=== PATIENT | male | born 1960 | race Caucasian/White ===

== ENCOUNTER 2022-04-19 09:45 | Outpatient (CLI) | payer OTHER, SELFPAY ==
--- NOTE | ~2022-04-19 | CT_ITS ---
EXAMINATION: CT diagnostic chest wo con DATE: 04/19/2022 12:16 INDICATION: COPD, shortness of breath TECHNIQUE: Computed tomography (CT) of the chest was performed without intravenous contrast. The dose -length product (DLP) was 762.17 mGy-cm. Automated exposure control and iterative reconstruction tech nique were employed. COMPARISON: None FINDINGS: There is mild emphysema. The heart size is normal. There are no pathologically enlarged tho racic lymph nodes. The lungs are free of acute opacities. No pleural effusion or pneumothorax. Bilate ral gynecomastia is noted. There are changes of coronary artery bypass grafting. Subendocardial fat d eposition in the interventricular septum and left ventricular apex of the heart is consistent with pr ior myocardial infarction. There is a moderate-sized sliding hiatal hernia. There is mild thoracic sp ondylosis. IMPRESSION: 1. Mild emphysema. Reviewed, dictated and finalized at location B. [facility] IMPRESSION: 1. Mild emphysema.
--- NOTE | 2022-04-19 10:06 | ECHO_ITS ---
Patient Info Name: Pablo Severino Age: 62 years : 1960 Gender: Male Ht: 70 in Wt: 253 lbs BSA: 2.42 m2 HR: 95 bpm BP: 159 / 97 mmHg Technical Quality: Good Exam Date: 04/19/2022 10:18 AM Exam Location: [facility] Patient Status: Outpatient Admit Date: 04/19/2022 Staff Ordering Physician: Ricardo Orellana DO [employer] Set Up Operator: Shanon Martinez RDCS Attending Provider: Ricardo Orellana DO Referring Physician: Esteban WATSON; Exam Type: CA echo doppler color flow Study Info Indications R06.09 - Other forms of dyspnea Complete two-dimensional, color flow and Doppler transthoracic echocardiogram is performed. Summary 1. Complete two-dimensional, color flow and Doppler transthoracic echocardiogram is performed. 2. Left ventricular chamber dimension is normal. 3. Left ventricular systolic function is normal, estimated at 65-70%. 4. The left ventricular diastolic function is grade I diastolic dysfunction. 5. E/e' 10 is mildly elevated. 6. There is mild aortic valve sclerosis. Left Ventricle E/e' 10 is mildly elevated. Left ventricular chamber dimension is normal. Left ventricular systolic function is normal, estimated at 65-70%. The left ventricular diastolic function is grade I diastolic dysfunction. Right Ventricle Right ventricular systolic function is normal and with normal TAPSE 2.1 cm. Right ventricular chamber dimension is normal. Left Atria Left atrial chamber dimension is normal. Right Atria Right atrial chamber dimension is normal. Aortic Valve The aortic valve is trileaflet. There is mild aortic valve sclerosis. There is no aortic valve stenosis. There is no aortic valve regurgitation. Pulmonic Valve There is no pulmonic regurgitation. Mitral Valve There is no mitral valve stenosis. There is no mitral valve regurgitation. Tricuspid Valve There is no tricuspid valve regurgitation. Pericardium/Pleural There is no pericardial effusion. Inferior Vena Cava Normal inferior vena cava with >50% collapse upon inspiration consistent with normal right atrial pressure, 5 mmHg. Aorta The aortic root size at the sinus of Valsalva is normal. Left Ventricular Outflow Tract Name Value Normal LVOT 2D LVOT Diameter 2.0 cm LVOT Doppler LVOT Peak Gradient 3 mmHg LVOT Mean Gradient 3 mmHg LVOT VTI 18 cm LVOT VTI/AV VTI Ratio 0.9 LVOT Stroke Volume 58 ml LVOT CO 5.1 l/min LVOT CI 2.1 l/min/m2 Mitral Valve Name Value Normal MV Doppler MV Peak Gradient 3 mmHg MV Mean Gradient 1 mmHg MV [place] 406 cm/s2 MV PHT
--- NOTE | 2022-04-21 08:39 | WPDPFTINT ---
PFT Procedure Performed PFT Procedure Performed Spirometry with Pre/Post Bronchodilator Plethysmography (Lung Vol) Diffusing Cap (DLCO) Flow Vol Loop PFT Interpretation Lung volumes were measured with the body plethysmography method. The elevated FRC and RV are indicative of air trapping. Spirometry showed diminished expiratory flow rates and diminished FEV1 to FVC ratio 53%, indicative of obstructive airway disease. Following administration of a bronchodilator there was no significant increase in expiratory flow rates. Lung diffusion capacity is within the normal range. The flow volume loop is consistent with obstructive airway disease. Impression: Moderate obstructive airway disease with evidence of lung hyperinflation and air trapping and no response to bronchodilators on this testing. Lung diffusion capacity within normal range.
--- NOTE | 2022-04-21 08:41 | WPDSIXMINUTE ---
Six Minute Walk Procedure Procedure Performed Pulmonary Stress Test (6 min walk) Six Minute Walk Six Minute Walk: This 6 minute walk test was carried out with the patient breathing ambient air. The pre walk oxyhemoglobin saturation was 92%. The patient walked over 365 m with no stops during testing. During the walk oxyhemoglobin saturation remained 94% or higher. Impression: No evidence of oxyhemoglobin desaturation on this testing.
== END 2022-04-19 09:46 | disposition home or self-care (01) ==
LOC: ANHPFT 09:46
PROVIDERS: PCP Family Medicine Adolescent Medicine; Visit Provider Internal Medicine Cardiovascular Disease
DX: J44.9 Chronic obstructive pulmonary disease, unspecified (principal); R06.09 Other forms of dyspnea; Z87.891 Personal history of nicotine dependence; R94.2 Abnormal results of pulmonary function studies; J43.9 Emphysema, unspecified
CPT/HCPCS: 71250; 93306; 94060; 94618; 94726; 94729

== ENCOUNTER 2022-06-12 17:43 | Outpatient (CLI) | payer OTHER, SELFPAY ==
[2022-06-12 18:12] LABS: Alanine Aminotransferase 21 U/L (6-50); Albumin Level 4.5 g/dL (3.5-5.1); Alkaline Phosphatase 88 U/L (38-126); Anion Gap 7 mmol/L (8-16); Aspartate Amino Transferase 23 U/L (17-59); Bilirubin,Total 0.5 mg/dL (0.2-1.3); Blood Urea Nitrogen 26 mg/dL (9-20); Calcium 8.9 mg/dL (8.4-10.2); Carbon Dioxide 34 mmol/L (22-30); Chloride 100 mmol/L (98-107); Cholesterol 171 mg/dL (0-200); Estimated Glomerular Filt Rate > 60; Glucose 104 mg/dL (65-110); HDL Direct 33 mg/dL; Magnesium 2.3 mg/dL (1.6-2.3); Potassium 4.9 mmol/L (3.4-5.0); Sodium 141 mmol/L (137-145); Triglycerides 155 mg/dL (<150)
[2022-06-12 18:22] LABS: LDL Cholesterol Direct 96 mg/dL
== END 2022-06-12 17:44 | disposition home or self-care (01) ==
PROVIDERS: PCP Family Medicine Adolescent Medicine; Visit Provider Internal Medicine Cardiovascular Disease
DX: E78.00 Pure hypercholesterolemia, unspecified (principal)
CPT/HCPCS: 36415; 80053; 80061; 83735

== ENCOUNTER 2022-08-18 19:37 | Emergency (ER) | payer OTHER, SELFPAY ==
--- NOTE | ~2022-08-18 | XR_ITS ---
EXAMINATION: XR chest 2V DATE: 08/18/2022 20:03 INDICATION: Shortness of breath. TECHNIQUE: Frontal and lateral views of the chest were obtained. COMPARISON: Chest 2 views 04/25/2018, chest CT 04/19/2022 FINDINGS: There is no pneumonia, pleural effusion, or pneumothorax. The heart size is normal. Median sternotomy wires and mediastinal surgical clips are seen, likely from prior coronary artery bypass gr afting. There is a moderate-sized hiatal hernia. IMPRESSION: 1. Moderate-sized hiatal hernia. Reviewed, dictated and finalized at location E.
--- NOTE | 2022-08-18 19:38 | ECG_ITS ---
Measurements Intervals [place] Rate: 90 P: 67 ID: 152 QRS: 63 QRSD: 127 T: 89 QT: 373 QTc: 457 Interpretive Statements SINUS RHYTHM POSSIBLE RIGHT VENTRICULAR CONDUCTION DELAY [RSR (QR) IN V1/V2] NO PREVIOUS ECG AVAILABLE FOR COMPARISON Electronically Signed On 08-19-2022 12:08:29 CDT by Concepcion Vines M.D.
[2022-08-18 19:46] VITALS: BP 158/94; PULSE 89; RESP 26; TEMP 36.3; O2SAT 97
[2022-08-18 19:59] LABS: Basophils Absolute Auto 0.1 K/mm3 (0.0-0.1); Basophils Percent Auto 0.9 % (0.2-1.2); Eosinophils Absolute Auto 0.6 K/mm3 (0-0.3); Eosinophils Percent Auto 6.7 % (0-4.4); Hematocrit 40.2 % (42.0-52.0); Hemoglobin 12.8 g/dL (14.0-18.0); Immature Granulocyte Absolute 0.06 K/mm3 (0.00-0.031); Immature Granulocyte Percent A 0.7 % (0-0.5); Lymphocytes Absolute Auto 2.58 K/mm3 (0.9-3.2); Lymphocytes Percent Auto 28.9 % (18.3-44.2); Mean Corpuscular HGB Conc 31.8 g/dl (32-36); Mean Corpuscular Hemoglobin 30.5 pg (26-34); Mean Corpuscular Volume 95.9 fl (80-100); Mean Platelet Volume 11.1 fl (7.4-10.4); Monocytes Absolute Auto 0.5 K/mm3 (0.1-0.6); Monocytes Percent Auto 5.2 % (2.6-8.5); Neutrophils Absolute Auto 5.1 K/mm3 (1.3-6.7); Neutrophils Percent Auto 57.6 % (45.5-73.1); Platelet Count Result 168 k/mm3 (150-375); Red Blood Count 4.19 M/mm3 (4.6-6.20); Red Cell Distribution Width 14.3 % (11.5-14.5); White Blood Count 8.9 K/mm3 (4.5-10.0)
[2022-08-18 20:17] VITALS: O2SAT 95
[2022-08-18 20:17] LABS: Alanine Aminotransferase 41 U/L (6-50); Albumin Level 5.1 g/dL (3.5-5.1); Alkaline Phosphatase 72 U/L (38-126); Anion Gap 3 mmol/L (8-16); Aspartate Amino Transferase 85 U/L (17-59); Bilirubin,Total 0.6 mg/dL (0.2-1.3); Blood Urea Nitrogen 28 mg/dL (9-20); Calcium 9.8 mg/dL (8.4-10.2); Carbon Dioxide 38 mmol/L (22-30); Chloride 98 mmol/L (98-107); Estimated CRCL calculation 57 ml/min; Estimated Glomerular Filt Rate 44; Glucose 96 mg/dL (65-110); Potassium 4.2 mmol/L (3.4-5.0); Sodium 139 mmol/L (137-145)
[2022-08-18 20:18] VITALS: BP 129/89; PULSE 78; RESP 20; O2SAT 95
--- NOTE | 2022-08-18 21:05 | ED.GENADULT ---
HPI - General Adult General Chief complaint: Shortness of Breath/Dyspnea Stated complaint: SOB Time Seen by Provider: 08/18/22 20:17 History of Present Illness HPI narrative: Patient is a 62-year-old male with history of CHF and COPD who presents ER with shortness of breath. Ongoing over the last couple of days. Associated sinus congestion. No sore throat. Has new productive cough. Reports his throat is nearly raspy but he has no difficulty swallowing. He does endorse some increased edema to his legs but he attributes that to being out of Lasix for couple of days. He has since refilled this medication. No chest pain or chest pressure. No orthopnea. No fevers or chills or sweats. Related Data Allergies Allergy/AdvReac Type Severity Reaction Status Date / Time No Known Allergies Allergy Verified 08/18/22 19:38 Review of Systems Review of Systems: All systems reviewed & are unremarkable except as noted in HPI and below Constitutional: Constitutional: Denies chills, Denies fatigue and Denies fever(s) ENT: Reports nasal congestion and Denies sore throat Cardiovascular: Cardiovascular: Denies chest pain, Denies rapid heart rate and Denies radiating jaw, neck or arm pain Respiratory: Respiratory: Reports cough, Reports dyspnea and Denies wheezing Gastrointestinal: Gastrointestinal: Denies abdominal pain, Denies nausea and Denies vomiting PMFSH Past Medical History Medical History COPD (chronic obstructive pulmonary disease) H/O nephrolithotomy with removal of calculi History of kidney stones Hypertension Personal history of nicotine dependence Shortness of breath on exertion Thyroid disease Surgical History Surgical History History of open heart surgery Hx of adenoidectomy Hx of right knee surgery Hx of tonsillectomy Family History Family History Father Carcinoma of colon Mother Bladder cancer Unknown Diabetes mellitus Hypertension Social History Social History Years smoked: 40 Smoking status: Former smoker Second hand tobacco smoke exposure: No Smoking end date: 04/23/19 Alcohol intake: never Substance use: never Substance use type: does not use Lack of Transportation: No Lack of Food: Sometimes True Current Housing: I Have Housing Concerned About Future Housing: No Difficulty Paying Gas/Electric Bills: No Difficulty Paying for Meds: No Currently Unemployed: YES Education: High School Diploma/GED Difficulty w/ Childcare or Family Care: No Living arrangements: with family Occupation/Education: retired Gender identity (if verbalized by the patient): Male Sexual Orientation (if Verbalized by the Patient): Straight or Heterosexual Spiritual care concerns: No Agree to blood products: Yes Exam Narrative: GENERAL: Well-appearing, well-nourished, and in no acute distress. HEAD: Normocephalic, atraumatic. EYES: PERRL and EOMI. ENT: Mucous membranes moist. CHEST: Clear to auscultation. No respiratory distress. HEART: Regular rate and rhythm. Normal peripheral pulses. ABDOMEN: Soft, nontender, nondistended. EXTREMITIES: Normal range of motion. +2 edema. SKIN: Warm, dry, no rash. NEURO: Alert and oriented x3. PSYCH: Normal mood and affect. Course Course Emergency Course: CBC with hemoglobin 12.8 which is not felt to be significant at this time. CMP with slight elevation creatinine but patient felt to have an ARGENIS. Chest x-ray without pneumonia or pulmonary edema and only shows a hiatal hernia. Patient felt to be suffering from URI and would benefit from some Flonase in addition to his Mucinex. Encourage patient to take his other medications as prescribed Vital Signs Vital signs: Vital Signs Temperature 97
[2022-08-18 22:13] VITALS: BP 117/76; PULSE 77; RESP 16; O2SAT 95
[2022-08-18 22:20] LABS: NT Pro B Type Natriuretic Pept 63 pg/mL (19.9-100)
== END 2022-08-18 22:20 | disposition home or self-care (01) ==
PROVIDERS: Emergency Provider Emergency Medicine; PCP Family Medicine Adolescent Medicine
DX: J06.9 Acute upper respiratory infection, unspecified (principal); I50.9 Heart failure, unspecified; I11.0 Hypertensive heart disease with heart failure; E07.9 Disorder of thyroid, unspecified; Z87.442 Personal history of urinary calculi; Z87.891 Personal history of nicotine dependence; R94.31 Abnormal electrocardiogram [ECG] [EKG]
CPT/HCPCS: 36415; 71046; 80053; 83880; 85025; 93005; 99284

== ENCOUNTER 2023-07-27 08:58 | Outpatient (CLI) | payer OTHER, SELFPAY ==
[2023-07-27 09:17] LABS: Basophils Absolute Auto 0.1 K/mm3 (0.0-0.1); Basophils Percent Auto 0.5 % (0.2-1.2); Eosinophils Percent Auto 0.2 % (0-4.4); Hematocrit 42.7 % (42.0-52.0); Hemoglobin 13.3 g/dL (14.0-18.0); Immature Granulocyte Absolute 0.05 K/mm3 (0.00-0.031); Immature Granulocyte Percent A 0.5 % (0-0.5); Lymphocytes Absolute Auto 1.65 K/mm3 (0.9-3.2); Lymphocytes Percent Auto 16.9 % (18.3-44.2); Mean Corpuscular HGB Conc 31.1 g/dl (32-36); Mean Corpuscular Hemoglobin 30.3 pg (26-34); Mean Corpuscular Volume 97.3 fl (80-100); Mean Platelet Volume 11.7 fl (7.4-10.4); Monocytes Absolute Auto 0.5 K/mm3 (0.1-0.6); Monocytes Percent Auto 5.2 % (2.6-8.5); Neutrophils Absolute Auto 7.5 K/mm3 (1.3-6.7); Neutrophils Percent Auto 76.7 % (45.5-73.1); Platelet Count Result 155 k/mm3 (150-375); Red Blood Count 4.39 M/mm3 (4.6-6.20); Red Cell Distribution Width 14.6 % (11.5-14.5); White Blood Count 9.8 K/mm3 (4.5-10.0)
[2023-07-27 09:37] LABS: Alanine Aminotransferase 47 U/L (6-50); Albumin Level 4.9 g/dL (3.5-5.1); Alkaline Phosphatase 55 U/L (38-126); Aspartate Amino Transferase 118 U/L (17-59); Bilirubin,Total 0.7 mg/dL (0.2-1.3); Blood Urea Nitrogen 21 mg/dL (9-20); Calcium 9.4 mg/dL (8.4-10.2); Carbon Dioxide > 40 mmol/L (22-30); Chloride 95 mmol/L (98-107); Estimated Glomerular Filt Rate 44; Glucose 107 mg/dL (65-110); HDL Direct 66 mg/dL; Potassium 4.1 mmol/L (3.4-5.0); Sodium 140 mmol/L (137-145); Triglycerides 93 mg/dL (<150)
[2023-07-27 09:45] LABS: LDL Cholesterol Direct 257 mg/dL
[2023-07-27 17:46] LABS: Prostate Specific Antigen 0.8 ng/mL (< OR = 4.0)
[2023-07-27 18:40] LABS: Cholesterol 377 mg/dL (0-200)
[2023-07-27 23:10] LABS: Thyroid Stimulating Hormone Reflex > 100.000 uIU/mL (0.465-4.68)
[2023-07-27 23:41] LABS: Free T4 Free Thyroxine Reflex 0.11 ng/dL (0.78-2.19)
== END 2023-07-27 08:59 | disposition home or self-care (01) ==
LOC: ANHLAB 08:59
PROVIDERS: PCP Family Medicine Adolescent Medicine; Visit Provider Nurse Practitioner Family
DX: E03.9 Hypothyroidism, unspecified (principal); I10 Essential (primary) hypertension; I25.810 Atherosclerosis of coronary artery bypass graft(s) without angina pectoris; R06.09 Other forms of dyspnea; R60.0 Localized edema; R73.01 Impaired fasting glucose; Z12.5 Encounter for screening for malignant neoplasm of prostate
CPT/HCPCS: 36415; 80053; 80061; 83036; 84153; 84439; 84443; 85025; G0103

== ENCOUNTER 2023-11-08 01:48 | Day surgery (SDC) | payer OTHER, SELFPAY ==
--- NOTE | 2023-08-27 10:58 | PC.NURSE ---
Pt called to do preop interview and during call pt started coughing- cough is very wet sounding and very productive, he states he is getting SOB with any exertion-especially when having to get to the bathroom. Pt expresses concern about doing this procedure now, I advised him to call his PCP to be seen and to get his current exacerbation of his COPD under control before doing colonoscopy. Dr. Mosquera's office called and message sent to Stephanie Mota regarding this patient. I did tell pt either Dr. Mosquera's office or I will get back with him regarding rescheduling.
[2023-10-26 09:08] VITALS: BMI 39.0
[2023-11-08 07:12] VITALS: BP 159/86; PULSE 97; RESP 20; TEMP 36.1; O2SAT 93
[2023-11-08] MEDS: LACTATED RINGERS 1,000 ML 150 ML IV CONT (07:24)
--- NOTE | 2023-11-08 07:54 | WPDANESEPPF ---
Anes - Initial Pre Proc Eval Procedure: Operation Date: 11/08/23 08:30 Proposed Procedures p Screening Colonoscopy - Jose Mosquera DO Date/Time: 11/08/23 07:54 Surgeon: Jose Mosquera DO Pre Op Diagnosis: Screening for malignant neoplasm of colon Patient Data Age: 63 Gender: M Height: 1.75 m Weight: 122.1 kg Last Vital Signs Temp 97.0 F L 11/08/23 07:12 Pulse 97 11/08/23 07:12 Resp 20 11/08/23 07:12 BP 159/86 H 11/08/23 07:12 Pulse Ox 93 11/08/23 07:12 O2 Del Method Room Air 11/08/23 07:12 Allergies Allergy/AdvReac Type Severity Reaction Status Date / Time No Known Allergies Allergy Verified 11/08/23 07:11 Home Medications Medication Instructions Recorded Confirmed Type Magnoi Aerosphere 160 2 inh inhalation BID #10.7 grams 07/26/23 10/26/23 Rx mcg-9mcg-4.8mcg/actuation HFA aerosol inhaler (wzzigmktoc-daofhzhw-epsrqwhbwk) albuterol sulfate 2.5 mg/0.5 mL 2.5 mg (0.5 mL) inhalation Q4H PRN 07/26/23 10/26/23 Rx solution for nebulization shortness of breath or wheezing #30 ea albuterol sulfate 90 mcg/actuation 1 inh inhalation Q4H #8.5 grams 07/26/23 10/26/23 Rx aerosol inhaler atorvastatin 20 mg tablet 20 mg PO DAILY #90 tabs 07/26/23 10/26/23 Rx carvedilol 12.5 mg tablet 12.5 mg PO Q12H #180 tabs 07/26/23 10/26/23 Rx furosemide 40 mg tablet 40 mg PO QAM #90 tabs 07/26/23 10/26/23 Rx levothyroxine 137 mcg tablet 137 mcg PO DAILY #90 tabs 07/26/23 10/26/23 Rx losartan 50 mg tablet 50 mg PO DAILY #90 tabs 07/26/23 10/26/23 Rx Patient hx anesthesia problems: none Family hx anesthesia problems: none Results Review: All pre-operative results and documents have been reviewed as part of the pre-operative evaluation. [facility] Past Medical History Medical History COPD (chronic obstructive pulmonary disease) H/O nephrolithotomy with removal of calculi History of kidney stones Hypertension Personal history of nicotine dependence Shortness of breath on exertion Thyroid disease Surgical History Surgical History History of open heart surgery Hx of adenoidectomy Hx of right knee surgery Hx of tonsillectomy Family History Family History Father Carcinoma of colon Mother Bladder cancer Unknown Diabetes mellitus Hypertension Social History Social History Smoking packs per day: 2 Smoking cigarettes per day: 40.0 Years smoked: 40 Smoking pack-years: 80.00 Smoking status: Former smoker Tobacco type: cigarettes Second hand tobacco smoke exposure: No Smoking end date: 04/23/19 Alcohol intake: former Drinks per week: 4 Alcohol use details: 2013 Substance use: never Substance use type: does not use Lack of Transportation: No Lack of Food: Sometimes True Current Housing: I Have Housing Concerned About Future Housing: No Difficulty Paying Gas/Electric Bills: No Difficulty Paying for Meds: No Currently Unemployed: YES Education: High School Diploma/GED Difficulty w/ Childcare or Family Care: No Living arrangements: with family Occupation/Education: retired Gender identity (if verbalized by the patient): Male Sexual Orientation (if Verbalized by the Patient): Straight or Heterosexual Spiritual care concerns: No Agree to blood products: Yes Anes - Eval Final PreProcedure Day of Procedure 11/08/23 07:54 Patient weight: morbidly obese Heart: regular rate and rhythm Lungs: clear to auscultation Airway: Mallampati scale class III Neurological: alert and oriented Last oral intake: >/= 8 hours ASA classification: III Emergent: no Anesthetic plan: proceed Anesthesia type and monitoring: general GIVS and standard monitoring Results Review: All pre-operative res
--- NOTE | 2023-11-08 08:26 | PM.IMHP ---
H&P: HPI History of Present Illness Date/Time: 11/08/23 08:26 Chief Complaint: Screening for colorectal cancer Narrative: this is a 63-year-old man who presents for colonoscopy. He has never had a colonoscopy before. He denies any hematochezia or melena. He denies any family history of colon cancer. Review of Systems Review of Systems: All systems reviewed & are unremarkable except as noted in HPI and below Constitutional: Constitutional: Denies chills, Denies fever(s), Denies headache(s) and Denies weight loss Eyes: Eyes: Denies change in vision ENT: Denies dizziness, Denies headache(s), Denies neck mass and Denies throat swelling Cardiovascular: Cardiovascular: Denies chest pain, Denies lightheadedness and Denies dyspnea Respiratory: Respiratory: Denies cough, Denies dyspnea and Denies wheezing Gastrointestinal: Gastrointestinal: Denies abdominal pain, Denies change in bowel habits, Denies nausea and Denies vomiting Genitourinary: Genitourinary: Denies hematuria and Denies dysuria Musculoskeletal: Musculoskeletal: Reports as per HPI Integumentary/Breasts: Skin/Breast: Reports as per HPI Neurologic: Denies dizziness and Denies headache(s) Allergic/Immunologic: Allergic/Immunologic: Denies throat swelling and Denies wheezing [facility] Past Medical History Medical History COPD (chronic obstructive pulmonary disease) H/O nephrolithotomy with removal of calculi History of kidney stones Hypertension Personal history of nicotine dependence Shortness of breath on exertion Thyroid disease Surgical History Surgical History History of open heart surgery Hx of adenoidectomy Hx of right knee surgery Hx of tonsillectomy Family History Family History Father Carcinoma of colon Mother Bladder cancer Unknown Diabetes mellitus Hypertension Social History Social History Smoking packs per day: 2 Smoking cigarettes per day: 40.0 Years smoked: 40 Smoking pack-years: 80.00 Smoking status: Former smoker Tobacco type: cigarettes Second hand tobacco smoke exposure: No Smoking end date: 04/23/19 Alcohol intake: former Drinks per week: 4 Alcohol use details: 2013 Substance use: never Substance use type: does not use Lack of Transportation: No Lack of Food: Sometimes True Current Housing: I Have Housing Concerned About Future Housing: No Difficulty Paying Gas/Electric Bills: No Difficulty Paying for Meds: No Currently Unemployed: YES Education: High School Diploma/GED Difficulty w/ Childcare or Family Care: No Living arrangements: with family Occupation/Education: retired Gender identity (if verbalized by the patient): Male Sexual Orientation (if Verbalized by the Patient): Straight or Heterosexual Spiritual care concerns: No Agree to blood products: Yes Meds Home Medications and Allergies Home Medications Medication Instructions Recorded Confirmed Type Christal Rayphere 160 2 inh inhalation BID #10.7 grams 07/26/23 10/26/23 Rx mcg-9mcg-4.8mcg/actuation HFA aerosol inhaler (lthntomlrf-xeszndup-lbnegvklqr) albuterol sulfate 2.5 mg/0.5 mL 2.5 mg (0.5 mL) inhalation Q4H PRN 07/26/23 10/26/23 Rx solution for nebulization shortness of breath or wheezing #30 ea albuterol sulfate 90 mcg/actuation 1 inh inhalation Q4H #8.5 grams 07/26/23 10/26/23 Rx aerosol inhaler atorvastatin 20 mg tablet 20 mg PO DAILY #90 tabs 07/26/23 10/26/23 Rx carvedilol 12.5 mg tablet 12.5 mg PO Q12H #180 tabs 07/26/23 10/26/23 Rx furosemide 40 mg tablet 40 mg PO QAM #90 tabs 07/26/23 10/26/23 Rx levothyroxine 137 mcg tablet 137 mcg PO DAILY #90 tabs 07/26/23 10/26/23 Rx losartan 50 mg tablet 50 mg PO DAILY #90 tabs 07/26/23
--- NOTE | 2023-11-08 08:28 | SUR.PREOP ---
PT TOOK HOME ALBUTEROL INHALER AT THIS TIME PER DR FARLEY ORDERS.
[2023-11-08 08:59] VITALS: BP 126/74; PULSE 93; RESP 21; O2SAT 94
[2023-11-08 09:09] VITALS: BP 117/73; PULSE 85; RESP 16; O2SAT 94
[2023-11-08 09:19] VITALS: BP 130/89; PULSE 87; RESP 17; O2SAT 97
== END 2023-11-08 09:44 | disposition home or self-care (01) ==
PROVIDERS: PCP Family Medicine Adolescent Medicine; Visit Provider Surgery
PROC: 0DJD8ZZ Inspection of Lower Intestinal Tract, Via Natural or Artificial Opening Endoscopic (ICD-10-PCS; CPT 45378; principal; 2023-11-08 08:30)
DX: Z12.11 Encounter for screening for malignant neoplasm of colon (principal); K57.30 Diverticulosis of large intestine without perforation or abscess without bleeding; J44.9 Chronic obstructive pulmonary disease, unspecified; I10 Essential (primary) hypertension; Z87.891 Personal history of nicotine dependence
CPT/HCPCS: 45378; J2704; J7120